=== PATIENT | female | born 1950 | race Caucasian/White ===

== ENCOUNTER 2023-09-08 10:38 | Outpatient (AMB) | payer MEDICARE, SELFPAY ==
--- NOTE | 2023-09-08 11:24 | AM.OFFWIN_ITS ---
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 has been recently diagnosed with dysphasia. 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 Patient is reporting symptoms of difficulty swallowing. She has been having these complaints for the last 2 weeks. Able to drink water and liquids. Very difficult eating hard foods. She had a endoscopy done 2 years ago. reports there is a change in voice. Reports no drooling. PFSH Social History Patient Tobacco Use Status: Never used Tobacco Physical Exam Vital Signs: Last Vital Signs Pulse 90 09/08/23 11:25 BP 130/74 09/08/23 11:25 Pulse Ox 98 09/08/23 11:25 Oxygen Delivery Method Room Air 09/08/23 11:25 Const General: cooperative and healthy appearing Nutritional Appearance: well nourished Orientation/consciousness: patient oriented x3 Limitations: no limitations HEENT Other: Throat: Posterior pharyngeal wall appears normal., tonsils are normal. No postnasal drip. Head: Yes normal to inspection Eyes General: appearance normal, both eyes and all related structures Neck Neck: Yes normal visual inspection Chest Chest palpation & inspection: normal palpation of entire chest wall Resp Effort & Inspection: normal respiratory effort Neuro General: patient oriented x3 Assessment & Plan Assessment & Plan (1) Dysphagia: Code(s): R13.10 - Dysphagia, unspecified Plan: An ENT appointment was scheduled to examined the posterior pharyngeal wall with the laryngoscope. Patient was encouraged to see the physician today. Coding Level of Care Code New Pt Level 4 (18924) Diagnoses Dysphagia R13.10
[2023-09-08 11:25] VITALS: BP 130/74; PULSE 90; O2SAT 98
== END 2023-09-08 14:08 | disposition home or self-care (01) ==
PROVIDERS: PCP Internal Medicine; Visit Provider Internal Medicine
DX: R13.10 Dysphagia, unspecified (principal)
CPT/HCPCS: 99204